=== PATIENT | male | born 1980 | race Caucasian/White ===

== ENCOUNTER 2019-05-27 01:10 | Emergency (ER) | payer OTHER ==
[~2019-05-27] VITALS: Ht 185.4 cm; Wt 106.9 kg
[~2019-05-27 01:10] MED LIST: IBUP-1542 PO
[2019-05-27 01:15] VITALS: BP 126/75; PULSE 85; RESP 19; Ht 185.4 cm; Wt 106.9 kg
[2019-05-27] MEDS ORDERED: IBUPROFEN 800 MG TAB PO ONE (02:00)
--- NOTE | 2019-05-27 02:58 | ERD ---
ER Documentation Chief Complaint Chief Complaint C/O LT OUTTER KNEE, AND LT CALF PAIN AND SWELLING X9 DAYS HPI Patient is a 39-year-old male with a history of left-sided varicose veins who presents with leg pain. The patient said that he feels like he has "hot veins that are burning". In the back of his left calf. He said that he tried a homeopathic remedy. The symptoms started on Saturday and have gotten worse. He also complains of headache, gout, sore throat, runny nose, and fever of 100. Upon review of old medical records this is the patient's first visit to the emergency department. He has an appointment scheduled with the doctor tomorrow. ROS All systems reviewed and are negative except as per history of present illness. Medications Home Meds Active Scripts Ibuprofen* (Motrin*) 600 Mg Tab, 600 MG PO Q6H PRN for PAIN AND OR ELEVATED TEMP, #30 TAB Prov:MONTSERRAT MANNING MD 05/27/19 Allergies Allergies: Coded Allergies: No Known Allergy (Unverified , 05/27/19) PMhx/Soc Medical and Surgical Hx: pt denies Medical Hx, pt denies Surgical Hx Hx Alcohol Use: No Hx Substance Use: No Hx Tobacco Use: No Smoking Status: Never smoker FmHx Family History: No diabetes Physical Exam Vitals Vital Signs Date Temp Pulse Resp B/P (MAP) Pulse Ox O2 O2 Flow FiO2 Time Delivery Rate 05/27/19 99.4 85 19 126/75 98 01:15 (92) Physical Exam Const: Mild distress Head: Atraumatic Eyes: Normal Conjunctiva ENT: Normal External Ears, Nose and Mouth. Neck: Full range of motion. No meningismus. Resp: Clear to auscultation bilaterally Cardio: Regular rate and rhythm, no murmurs Abd: Soft, non tender, non distended. Normal bowel sounds Skin: Varicose veins to the posterior left calf with likely superficial thrombophlebitis Back: No midline or flank tenderness Ext: No cyanosis, or edema Neur: Awake and alert Psych: Normal Mood and Affect Results 24 hrs Current Medications Medications Dose Sig/Krista Start Time Status Last (Trade) Ordered Route PRN Stop Time Admin Dose Reason Admin Ibuprofen 800 mg ONCE ONCE 05/27/19 DC 05/27/19 (Motrin) PO 02:00 8/7/19 01:39 02:01 Procedures/MDM Left lower extremity ultrasound shows no DVT per radiology. Patient is a 39-year-old male presents with multiple complaints. His initial complaint is leg pain and I believe there is a superficial thrombophlebitis of the left varicose veins. The patient will be discharged with a prescription for ibuprofen which will treat superficial thrombophlebitis as well as gout which she is complaining of. The patient can return for any worsening symptoms. I doubt serious bacterial infection. The patient has a follow-up appointment with his primary doctor tomorrow. Departure Diagnosis: Primary Impression: Gout Gout site: unspecified site Gout etiology: unspecified cause Chronicity: acute Qualified Codes: M10.9 - Gout, unspecified Additional Impression: Thrombophlebitis Condition: Fair Patient Instructions: Gouty Arthritis, Thrombophlebitis, Superficial Referrals: Your doctor Additional Instructions: Keep the appointment scheduled for your doctor tomorrow. MONTSERRAT MANNING MD May 27, 2019 02:58
== END 2019-05-27 03:02 | disposition home or self-care (01) ==
LOC: FTE 01:10
DX: M10.9 Gout, unspecified (principal); I80.9 Phlebitis and thrombophlebitis of unspecified site
CPT/HCPCS: 93971; Z7502; Z7610